=== PATIENT | female | born 1975 | race Asian ===

== ENCOUNTER 2022-11-13 00:55 | Emergency (ER) | payer OTHER ==
[2022-11-13 01:14] VITALS: RESP 18; BMI 27.4
[2022-11-13 02:52] LABS: BASO % 1.1 % (0-2.0); EOS % 2.9 % (0-4.5); HEMATOCRIT 35.2 % (32.4-45.2); HEMOGLOBIN 12.1 GM/dL (10.7-15.3); LYMPH % 36.3 % (8-40); MCH 27.8 pg (25.7-33.7); MCHC 34.3 g/dl (32.0-36.0); MEAN CELL VOLUME 81.1 fl (80-96); MEAN PLT VOLUME 8.5 fl (7.5-11.1); MONO % 7.3 % (3.8-10.2); NEUT % 52.4 % (42.8-82.8); PLATELET COUNT 293 10^3/uL (134-434); RBC 4.35 M/mm3 (3.60-5.2); RDW 14.1 % (11.6-15.6); WHITE BLOOD COUNT 8.6 K/mm3 (4.0-10.0)
[2022-11-13 02:59] LABS: HCG,QUALITATIVE URINE Negative
[2022-11-13 03:00] LABS: EPI CELLS 14 /uL (0-25.1); HYALINE CASTS 0 /uL (0-3.1); URINE APPEARANCE CLEAR; URINE BACTERIA 110 /uL (0-1359); URINE BILIRUBIN NEGATIVE (NEGATIVE); URINE COLOR YELLOW; URINE GLUCOSE (UA) NEGATIVE (NEGATIVE); URINE KETONE NEGATIVE (NEGATIVE); URINE LEUK ESTERASE NEGATIVE (NEGATIVE); URINE NITRITE NEGATIVE (NEGATIVE); URINE PROTEIN NEGATIVE (NEGATIVE); URINE RBC 23 /uL (0-23.9); URINE UROBILINOGEN 0.2 mg/dL (0.2-1.0); URINE WBC 5 /uL (0-25.8)
[2022-11-13 03:13] LABS: POTASSIUM 4.5 mmol/L (3.5-5.1)
[2022-11-13 03:15] LABS: ALBUMIN 3.7 g/dl (3.4-5.0); BLOOD UREA NITROGEN 20.7 mg/dL (7-18); CALCIUM 8.9 mg/dL (8.5-10.1); MAGNESIUM 1.9 mg/dL (1.8-2.4)
[2022-11-13 03:18] LABS: CREATININE 0.8 mg/dL (0.55-1.3)
[2022-11-13 03:20] LABS: BILIRUBIN,TOTAL 0.2 mg/dL (0.2-1); TOT PROT 7.4 g/dl (6.4-8.2)
[2022-11-13] MEDS ORDERED: CIPROFLOXACIN 500 MG TABLET (RESTRICTED TO ID) PO ONE (09:03)
[2022-11-13] MEDS ORDERED: metroNIDAZOLE 250 MG TABLET PO ONE (09:03)
[2022-11-13] MEDS ORDERED: metroNIDAZOLE 250 MG TABLET ONE (09:38)
[2022-11-13 09:40] VITALS: BP 125/84; PULSE 69; TEMP 97.8
== END 2022-11-13 10:15 | disposition home or self-care (01) ==
LOC: JER 00:55
DX: K57.92 Diverticulitis of intestine, part unspecified, without perforation or abscess without bleeding (principal); R10.32 Left lower quadrant pain; Z20.822 Contact with and (suspected) exposure to COVID-19
CPT/HCPCS: 0241U-QW; 36415; 74177-TC; 76830-TC; 80053; 81003; 83735; 84703; 85025; 87077; 87086; 99285-25; Q9967

== ENCOUNTER 2023-01-24 05:11 | Day surgery (SDC) | payer OTHER ==
[2023-01-23 09:59] VITALS: BMI 27.4
[2023-01-24] MEDS ORDERED: ONDANSETRON 4 MG/2 ML VIAL ONE (09:55)
[2023-01-24] MEDS: ONDANSETRON 4 MG/2 ML VIAL IVPUSH ONE ×2 (10:00)
[2023-01-24 10:08] VITALS: TEMP 98.7
[2023-01-24 10:50] VITALS: BP 129/85; PULSE 78; RESP 20
== END 2023-01-24 10:50 | disposition home or self-care (01) ==
LOC: JASU-ENDO 05:11
PROVIDERS: ATTEND Student in an Organized Health Care Education/Training Program
PROC: 0DBP8ZX Excision of Rectum, Via Natural or Artificial Opening Endoscopic, Diagnostic (ICD-10-PCS; principal; 2023-01-24 09:00)
DX: K62.1 Rectal polyp (principal); K57.30 Diverticulosis of large intestine without perforation or abscess without bleeding; K64.8 Other hemorrhoids; K59.89 Other specified functional intestinal disorders; K62.89 Other specified diseases of anus and rectum
CPT/HCPCS: 81025; 88305-TC